=== PATIENT | female | born 1950 | race Caucasian/White ===

== ENCOUNTER 2018-12-12 09:04 | Day surgery (SDC) | payer BC, MEDICARE, OTHER ==
[~2018-12-12 09:04] MED LIST: Buffered Lidocaine 1% SYRIN* 1 ML/SYRINGE INTRADERM ONE
[2018-12-12] MEDS ORDERED: Midazolam* 1 MG/ML 2 ML VIAL (2 MG) ONE (10:32)
[2018-12-12] MEDS ORDERED: Ondansetron INJ* 2 MG/ML VIAL ONE (10:32)
[2018-12-12] MEDS ORDERED: fentaNYL* 50 MCG/ML 2 ML VIAL (100 MCG VIAL) ONE (10:32)
[2018-12-12 11:49] VITALS: BP 93/58
[2018-12-12] MEDS ORDERED: Neomycin/Polymy/Dex OPTH.SUSP* MAXITROL 0.1% 5 ML ONE (11:49)
[2018-12-12] MEDS ORDERED: Phenylephrine OPHTH SOL 2.5%* 2 ML ONE (11:49)
[2018-12-12] MEDS ORDERED: Lidocaine 2% EPI 1:200000 MPF*10-20 ML VIAL ONE (11:49)
[2018-12-12] MEDS ORDERED: Povidone Iodine 5% OPTH* 30 ML BTL ONE (11:49)
[2018-12-12] MEDS ORDERED: Proparacaine 0.5% OPHTH.SOL* 15 ML BTL ONE (11:49)
[2018-12-12] MEDS ORDERED: Ketorolac 0.5% OPHTH (NF) 0.5 % 5 ML BTL ONE (11:49)
[2018-12-12] MEDS ORDERED: Lidocaine 1%* 5 ML VIAL ONE (11:49)
[2018-12-12] MEDS ORDERED: Cyclopentolate 1% OPTH.SOL* 2 ML BTL ONE (11:49)
--- NOTE | 2018-12-12 13:10 | OP ---
OPERATIVE NOTE: DATE OF OPERATION: 12/12/18 DATE OF : 54 SURGEON: Jonel Garza M.D. PREOPERATIVE DIAGNOSIS: Cataract, right eye. POSTOPERATIVE DIAGNOSIS: Cataract, right eye. OPERATIVE PROCEDURE: Extracapsular cataract extraction with intraocular lens implant, right eye. PROCEDURE: The patient was brought to the operating room after being given 1/2% Alcaine with epineph rine drops in the preoperative area. The eye was prepped and draped in the usual sterile fashion. S terile drape and eyelid speculum were placed. Again, topical 1/2% Alcaine with epinephrine was given . A paracentesis incision was made at the 9 o'clock position with the No. 75 blade. Clear cornea in cision 2.2 x 2.2-mm was created at the 12 o'clock position starting at the anterior limbus using the 2.2-mm keratome. The anterior chamber was irrigated with 0.4 mL of 1% non-preservative intracameral lidocaine and filled with DisCoVisc. A capsulorrhexis was completed using the cystotome and the Utra ta forceps. Hydrodissection was performed with balanced salt solution. The lens nucleus was removed with the Phacoemulsification handpiece without incident. Cortex was removed with the irrigation-aspi ration handpiece. The capsular bag was re-inflated using DisCoVisc and an [id number] 23 implant was inse rted with the shooter. The irrigation-aspiration handpiece was used to remove all residual DisCoVisc . The eye was refilled with balanced salt solution and the wound checked and found to be watertight. Topical Maxitrol drops were given. [id number]/[facility] #: [id number]
[2018-12-13] MEDS ORDERED: Acetaminophen TAB* 325 MG PO PRN (05:00)
== END 2018-12-12 11:48 | disposition home or self-care (01) ==
LOC: OREAST 09:04
PROVIDERS: ATTEND Specialist
DX: H25.811 Combined forms of age-related cataract, right eye (principal); E11.9 Type 2 diabetes mellitus without complications; Z79.84 Long term (current) use of oral hypoglycemic drugs; I10 Essential (primary) hypertension; J44.9 Chronic obstructive pulmonary disease, unspecified; Z72.0 Tobacco use; M19.90 Unspecified osteoarthritis, unspecified site
CPT/HCPCS: A9270-GY; J2250; J2405; J3010; V2632

== ENCOUNTER 2018-12-19 07:10 | Day surgery (SDC) | payer MEDICARE, OTHER ==
[~2018-12-19 07:10] MED LIST changes: +Acetaminophen TAB* 325 MG PO PRN
[2018-12-19] MEDS ORDERED: Midazolam* 1 MG/ML 2 ML VIAL (2 MG) ONE (09:10)
[2018-12-19] MEDS ORDERED: Ondansetron INJ* 2 MG/ML VIAL ONE (09:11)
[2018-12-19] MEDS ORDERED: Neomycin/Polymy/Dex OPTH.SUSP* MAXITROL 0.1% 5 ML ONE (09:56)
[2018-12-19] MEDS ORDERED: Cyclopentolate 1% OPTH.SOL* 2 ML BTL ONE (09:56)
[2018-12-19] MEDS ORDERED: Proparacaine 0.5% OPHTH.SOL* 15 ML BTL ONE (09:56)
[2018-12-19] MEDS ORDERED: Povidone Iodine 5% OPTH* 30 ML BTL ONE (09:56)
[2018-12-19] MEDS ORDERED: Lidocaine 2% EPI 1:200000 MPF*10-20 ML VIAL ONE (09:56)
[2018-12-19] MEDS ORDERED: Lidocaine 1%* 5 ML VIAL ONE (09:56)
[2018-12-19] MEDS ORDERED: Phenylephrine OPHTH SOL 2.5%* 2 ML ONE (09:56)
[2018-12-19] MEDS ORDERED: Ketorolac 0.5% OPHTH (NF) 0.5 % 5 ML BTL ONE (09:56)
[2018-12-19 10:01] VITALS: BP 111/59
--- NOTE | 2018-12-19 11:23 | OP ---
OPERATIVE NOTE: DATE OF OPERATION: 12/19/18 DATE OF : 54 SURGEON: Jonel Garza M.D. PREOPERATIVE DIAGNOSIS: Cataract, left eye. POSTOPERATIVE DIAGNOSIS: Cataract, left eye. OPERATIVE PROCEDURE: Extracapsular cataract extraction with intraocular lens implant, left eye. DESCRIPTION OF PROCEDURE: The patient was brought to the operating room after being given 1/2% Alcai ne with epinephrine drops in the preoperative area. The eye was prepped and draped in the usual ster ile fashion. Sterile drape and eyelid speculum were placed. Again, topical 1/2% Alcaine with epinep hrine was given. A paracentesis incision was made at the 3 o'clock position with the No.75 blade. Cl ear cornea incision 2.2 x 2.2-mm was created at the 6 o'clock position starting at the anterior limbu s using the 2.2-mm keratome. The anterior chamber was irrigated with 0.4 mL of 1% non-preservative i ntracameral lidocaine and filled with DisCoVisc. A capsulorrhexis was completed using the cystotome and the Utrata forceps. Hydrodissection was performed with balanced salt solution. The lens nucleus was removed with the Phacoemulsification handpiece without incident. Cortex was removed with the irr igation-aspiration handpiece. The capsular bag was re-inflated using DisCoVisc and an SN60WF 20.5 in serted with the shooter. Measurements confirmed with ORA. The irrigation-aspiration handpiece was us ed to remove all residual DisCoVisc. The eye was refilled with balanced salt solution and the wound checked and found to be watertight. Topical Maxitrol drops were given. [id number]/[facility] #: [id number]
== END 2018-12-19 10:11 | disposition home or self-care (01) ==
LOC: OREAST 07:10
PROVIDERS: ATTEND Specialist
DX: H25.812 Combined forms of age-related cataract, left eye (principal); E11.9 Type 2 diabetes mellitus without complications; Z79.84 Long term (current) use of oral hypoglycemic drugs; Z72.0 Tobacco use; I10 Essential (primary) hypertension; J44.9 Chronic obstructive pulmonary disease, unspecified; M19.90 Unspecified osteoarthritis, unspecified site
CPT/HCPCS: A9270-GY; J2250; J2405; V2632